=== PATIENT | female | born 1935 | race Asian ===

== ENCOUNTER 2017-04-05 09:17 | Outpatient (CLI) | payer MEDICARE ==
[2017-04-05 09:43] LABS: Hematocrit 37.9 % (30.3-42.9); Hemoglobin 12.2 gm/dl (10.1-14.3); Mean Corpuscular HGB Conc 32 % (30-34); Mean Corpuscular Hemoglobin 28 pg (28-32); Mean Corpuscular Volume 85 fl (79-97); Platelet Count 174 K/mm3 (140-440); Red Blood Count 4.45 M/mm3 (3.65-5.03); Red Cell Distribution Width 13.9 % (13.2-15.2); White Blood Count 4.7 K/mm3 (4.5-11.0)
[2017-04-05 10:05] LABS: Alanine Aminotransferase 10 units/L (7-56); Albumin 3.7 g/dL (3.9-5); Albumin/Globulin Ratio 0.9 %; Alkaline Phosphatase 108 units/L (35-129); Anion Gap 17 mmol/L; Blood Urea Nitrogen 16 mg/dL (7-17); Calcium 9.1 mg/dL (8.4-10.2); Carbon Dioxide 26 mmol/L (22-30); Chloride 100.9 mmol/L (98-107); Creatine Kinase 75 units/L (30-135); Glucose 86 mg/dL (65-100); Potassium 3.8 mmol/L (3.6-5.0); Sodium 140 mmol/L (137-145); Total Protein 7.8 g/dL (6.3-8.2)
[2017-04-06 15:28] LABS: Vitamin D, 25-OH, Total 30 ng/mL (30-100)
== END 2017-04-05 09:18 | disposition home or self-care (01) ==
LOC: LAB 09:17
PROVIDERS: ATTEND Specialist
DX: G91.0 Communicating hydrocephalus (principal); F02.80 Dementia in other diseases classified elsewhere, unspecified severity, without behavioral disturbance, psychotic disturbance, mood disturbance, and anxiety; R79.89 Other specified abnormal findings of blood chemistry
CPT/HCPCS: 36415; 80053; 82085; 82164; 82306; 82550; 82607; 82747; 83036; 83921; 84436; 84443; 85027; 86592